=== PATIENT | male | born 1975 | race Caucasian/White ===

== ENCOUNTER 2021-07-03 13:51 | Observation (INO) | payer SELFPAY ==
[2021-07-03] VITALS (10 sets, daily range): BP systolic 117–134; BP diastolic 64–89; PULSE 54–98; RESP 15–18; TEMP 36.3–37.4; O2SAT 95–100; BMI 21.0
--- NOTE | ~2021-07-03 | CT_ITS ---
EXAMINATION: CT brain wo con DATE: 07/03/2021 15:12 INDICATION: Seizure. Confusion. Laceration to the back of the head. TECHNIQUE: Computed tomography (CT) of the head was performed without intravenous contrast. Sagittal and coronal reconstructions were performed. The mA was adjusted according to patient size. Iterative reconstruction technique was employed. The dose-length product was 605.33 mGy-cm. COMPARISON: None FINDINGS: No fracture. No acute intracranial hemorrhage, acute infarction or abnormal extra axial fluid collect ion. Ventricles are normal and symmetric. No mass/mass effect. Tiny right mastoid effusion. The orbit s are normal. Mucosal thickening at the left frontoethmoidal recess, anterior left ethmoid air cells and left sphenoid sinus. Additional mucosal thickening is seen at the visualized cephalad-most portio n of the left maxillary sinus which demonstrates thickened sclerotic fuentes consistent with chronic si nusitis. IMPRESSION: 1. Normal brain. No fracture or acute intracranial process. 2. Sinus disease including likely chronic left maxillary sinusitis. Reviewed, dictated and finalized at location A.
--- NOTE | 2021-07-03 14:11 | ECG_ITS ---
Measurements Intervals [place] Rate: 89 P: 49 CT: 148 QRS: 18 QRSD: 92 T: 46 QT: 395 QTc: 483 Interpretive Statements SINUS RHYTHM INCOMPLETE RIGHT BUNDLE BRANCH BLOCK BASELINE ARTIFACT- II, V1, V3-V6 BORDERLINE ECG Electronically Signed On 07-03-2021 15:11:03 CDT by Paulo Gaitan D.O.
[2021-07-03] MEDS: PHENobarbitaL sodium (*CRX) 130 MG/ML VIAL IV PUSH (15:17)
[2021-07-03] MEDS: LACTATED RINGERS 1,000 ML 999 ML IV CONT (15:17)
[2021-07-03] MEDS: THIAMINE HCL 200 MG/2 ML VIAL 500 MG IV PUSH (15:17)
[2021-07-03 15:46] LABS: Basophils Percent Auto 0.3 % (0.2-1.2); Eosinophils Percent Auto 0.1 % (0-4.4); Hematocrit 36.9 % (42.0-52.0); Immature Granulocyte Absolute 0.03 K/mm3 (0.00-0.031); Immature Granulocyte Percent A 0.3 % (0-0.5); Lymphocytes Absolute Auto 0.52 K/mm3 (0.9-3.2); Mean Corpuscular HGB Conc 35.2 g/dl (32-36); Mean Corpuscular Hemoglobin 32.7 pg (26-34); Mean Corpuscular Volume 92.9 fl (80-100); Mean Platelet Volume 9.3 fl (7.4-10.4); Monocytes Absolute Auto 0.4 K/mm3 (0.1-0.6); Monocytes Percent Auto 4.2 % (2.6-8.5); Neutrophils Absolute Auto 7.7 K/mm3 (1.3-6.7); Neutrophils Percent Auto 89.1 % (45.5-73.1); Platelet Count Result 161 k/mm3 (150-375); Red Blood Count 3.97 M/mm3 (4.6-6.20); Red Cell Distribution Width 12.1 % (11.5-14.5); White Blood Count 8.6 K/mm3 (4.5-10.0)
[2021-07-03 15:57] LABS: Ethanol < 10 mg/dL (<10)
[2021-07-03 15:58] LABS: Alanine Aminotransferase 45 U/L (4-50); Albumin Level 4.4 g/dL (3.5-5.1); Alkaline Phosphatase 73 U/L (38-126); Anion Gap 7 mmol/L (8-16); Aspartate Amino Transferase 73 U/L (17-59); Bilirubin,Total 0.9 mg/dL (0.2-1.3); Blood Urea Nitrogen 14 mg/dL (9-20); Carbon Dioxide 29 mmol/L (22-30); Chloride 100 mmol/L (98-107); Estimated CRCL calculation 103 ml/min; Estimated Glomerular Filt Rate > 60; Glucose 100 mg/dL (65-110); Potassium 4.3 mmol/L (3.4-5.0); Sodium 136 mmol/L (137-145)
[2021-07-03 16:10] LABS: Amphetamine Screen Urine Negative (Negative); Barbiturate Screen Urine Negative (Negative); Benzodiazepines Screen Urine Negative (Negative); Cannabinoid Screen Urine Negative (Negative); Cocaine Screen Urine Negative (Negative); Methadone Screen Urine Negative (Negative); Opiate Screen Urine Negative (Negative); Phencyclidine Screen Urine Negative (Negative)
--- NOTE | 2021-07-03 17:12 | ED.SEIZURE ---
HPI - Seizure General Chief Complaint: Seizure Stated Complaint: sz, etoh history Time Seen by Provider: 07/03/21 13:58 Source: patient Mode of arrival: EMS Limitations: clinical condition History of Present Illness HPI Narrative: 45-year-old male Brought in by EMS for a seizure We do not have a good description of the seizure activity, only report from EMS is that he still appeared to be somewhat confused/postictal when they arrived The patient tells me that he has a history of seizures which occur several times each year He says that he takes an anticonvulsant which begins with a letter O which is prescribed to him the the ER in [facility] where he lives 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 He does not follow-up with a PCP or a neurologist It looks like he has had a number of falls, he has got bruises on his left shoulder left cheek right forehead Denies being in any altercations He is a heavy daily drinker, at least six and as many as twelve beers every day, not very much hard liquor, most recently drank beer about 14 hours ago last night Denies drug use Seizure History: Yes (x 1 episode) Related Data Home Medications Medication Instructions Recorded Confirmed Unable to Obtain Home Medications 07/03/21 07/03/21 Allergies Allergy/AdvReac Type Severity Reaction Status Date / Time No Known Allergies Allergy Verified 07/03/21 14:09 Review of Systems Review of Systems: All systems reviewed & are unremarkable except as noted in HPI and below Constitutional: Constitutional: Reports no additional constitutional complaints, Denies chills, Reports fatigue, Denies fever(s) and Denies headache(s) Eyes: Eyes: Reports no additional eye complaints and Denies change in vision ENT: Denies headache(s) and Denies sore throat Cardiovascular: Cardiovascular: Denies chest pain and Denies dyspnea Respiratory: Respiratory: Denies cough and Denies dyspnea Gastrointestinal: Gastrointestinal: Denies abdominal pain, Denies diarrhea, Reports nausea and Reports vomiting Genitourinary: Genitourinary: Denies dysuria and Denies urinary frequency Musculoskeletal: Musculoskeletal: Denies deformity, Denies arthralgias, Denies joint swelling and Denies numbness Comments: Contusions Integumentary/Breasts: Skin/Breast: Denies rash and Denies wounds Neurologic: Reports headache(s), Denies focal weakness and Denies numbness Comments: Syncope versus seizure Psychiatric: Psychiatric: Reports no additional psychiatric complaints Endocrine: Endocrine: Reports no additional endocrine complaints Hematologic/Lymphatic: Hematologic/Lymphatic: Reports no additional hematologic/lymphatic complaints Allergic/Immunologic: Allergic/Immunologic: Reports no additional allergic/immunologic complaints [facility] Past Medical History Medical History (Updated 07/03/21 @ 17:23 by Thong Mistry MD) Seizure Social History Social History (Updated 07/03/21 @ 17:20 by Thong Mistry MD) Alcohol intake: current Exam Const: General: cooperative and alert Nutritional Appearance: well nourished Orientation/consciousness: patient oriented x3 (alert) HENMT: Head: normocephalic, atraumatic, contusion and no lacerations Ears: external ears normal General nose exam: no epistaxis Eyes: Conjunctivae: conjunctivae normal Pupils: Equal, round and reactive pupils present EOM: EOMs intact bilaterally Neck: Neck: normal visual inspection, supple and no JVD Resp: Effort & Inspection: normal respiratory effort and not labored Auscultation: clear to auscultation bilaterally, no rales, no rhonchi, no wheezes and other (BS =) Cardio: Rate: regular rate Rhythm: regular rhythm Heart sounds: no murmurs GI: GI Palp: Yes Soft to palpation, No Tenderness to palpation present (GI) and No Guarding due to palpation present (GI) Skin: General skin exam: normal color and no rashes or lesions noted Other: Abrasions and contusion
--- NOTE | 2021-07-03 18:30 | ADMGEN ---
This patient, Thong Acosta, was admitted to IMU Room 207-01. Patient/family oriented to hospital policies and general routines including ID bracelet, bed and alarms, visiting hours, pain management, procedures, bathroom and other care routines, personal items, smoking policy, room service/diet, and visiting hours. Information on how to activate the Rapid Response Team has been discussed. Patient/Family are encouraged to report perceived risks to care and to ask questions if they do not understand what they are told or what they should do.
[2021-07-03] MEDS: THIAMINE HCL INJ 100 MG, FOLIC ACID INJ 1 MG, MULTIVITAMINS-12 INJ VIAL 1 5 ML, MULTIVI... 125 MG IV CONT (19:04)
[2021-07-03 20:16] LABS: Magnesium 3.8 mg/dL (1.6-2.3)
[2021-07-03] MEDS: FAMOTIDINE 20 MG/2 ML VIAL IV PUSH (20:26)
[2021-07-03] MEDS: chlordiazePOXIDE (*CRX) 25 MG CAPSULE PO (20:27)
[2021-07-03] MEDS: LORazepam INJ (*CRX) 2 MG/ML VIAL 1 MG IV PUSH (20:32)
--- NOTE | 2021-07-03 21:06 | PM.IMHP ---
H&P: HPI History of Present Illness Date/Time: 07/03/21 21:06 this is a 45-year-old male patient who has a history of alcoholism. The patient recently had been to rehab but then started drinking again. The patient stated that he does have alcohol withdrawal seizures. The patient stated he was placed on something for this but does not remember what it was called. The patient has abrasions on his face and arm. The patient fell was brought to the emergency room for seizure. The patient was somewhat confused when he arrived to the emergency room. The patient stated he does not see a neurologist any does not take any medicine at this time. 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 Patient states that he drinks a pt of vodka a day and then has multiple beers with that. He is not able to quantify how many beers he has on a daily basis. On his ER record it was noted that the patient drinks 6-12 beers. His last drink was approximately 14 hours ago. However the patient does not recall the events of last night. The patient has had 1 seizure in the past and was due to alcohol withdrawal. The patient is now awake and talking to me. The patient has tremulous hands. H&H 13.0 and 36.9. Neutrophils 89.1. Sodium 136. Magnesium was high at 3.8. AST 73. I did order p.r.n. Ativan and Librium and banana bag and then we can start folic acid and thiamin. CT of the brain read as normal brain. Patient is being admitted to observation status on the date of service of 07/03/2021 Chief Complaint: Alcohol withdrawal seizure Review of Systems Review of Systems: All systems reviewed & are unremarkable except as noted in HPI and below Constitutional: Constitutional: Reports as per HPI and Reports no additional constitutional complaints Eyes: Eyes: Reports as per HPI and Reports no additional eye complaints ENT: Reports system reviewed and no additional complaints, except as documented and Reports Normal hearing present Cardiovascular: Cardiovascular: Reports no additional cardiovascular complaints Respiratory: Respiratory: Reports no additional respiratory complaints and Reports no additional respiratory complaints Gastrointestinal: Gastrointestinal: Reports as per HPI and Reports no additional gastrointestinal complaints Musculoskeletal: Musculoskeletal: Reports no additional musculoskeletal complaints Integumentary/Breasts: Skin/Breast: Reports system reviewed and no additional complaints, except as docu and Reports as per HPI Neurologic: Reports system reviewed and no additional complaints, except as documented, Reports as per HPI and Reports Normal hearing present Psychiatric: Psychiatric: Reports no additional psychiatric complaints and Reports as per HPI Endocrine: Endocrine: Reports no additional endocrine complaints Hematologic/Lymphatic: Hematologic/Lymphatic: Reports no additional hematologic/lymphatic complaints Allergic/Immunologic: Allergic/Immunologic: Reports no additional allergic/immunologic complaints COUNT INCLUDES THE [facility] Past Medical History Medical History (Updated 07/03/21 @ 21:41 by Cintia Nickerson NP) Alcohol abuse Seizure Surgical History Surgical History (Updated 07/03/21 @ 21:40 by Cintia Nickerson NP) History of tonsillectomy and adenoidectomy Family History Family History (Updated 07/03/21 @ 18:47 by Swetha Sosa RN) Other Unknown family medical history Social History Social History (Updated 07/03/21 @ 21:44 by Cintia Nickerson NP) Social History: The patient is single and does not have any children. 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 The patient is a full code and does not have a durable power health care attorney. He does live with a roommate that he has known since grade school. The patient stated he can drink up to a pt of vodka a day +6 to 12 beers a day. Patient
[2021-07-03] MEDS: NICOTINE (*PBKC) 21 MG PATCH 1 PATCH TRANSDERM (21:52)
[2021-07-04] VITALS (13 sets, daily range): BP systolic 117–126; BP diastolic 72–86; PULSE 47–65; RESP 12–16; TEMP 36.1–37; O2SAT 100
[2021-07-04 00:04] LABS: Glucose Point of Care 66 mg/dl (65-105)
[2021-07-04 01:34] LABS: Glucose Point of Care 125 mg/dl (65-105)
[2021-07-04] MEDS: LACTATED RINGERS 1,000 ML 125 ML IV CONT ×3 (03:34→21:07)
[2021-07-04] MEDS: chlordiazePOXIDE (*CRX) 25 MG CAPSULE PO ×3 (06:00→21:08)
[2021-07-04 06:48] LABS: Glucose Point of Care 90 mg/dl (65-105)
[2021-07-04] MEDS: FAMOTIDINE 20 MG/2 ML VIAL IV PUSH ×2 (08:32→21:07)
[2021-07-04] MEDS: FOLIC ACID 1 MG TABLET PO (08:32)
[2021-07-04] MEDS: THIAMINE HCL 100 MG TABLET PO (08:32)
[2021-07-04] MEDS: NICOTINE (*PBKC) 21 MG PATCH 1 PATCH TRANSDERM (08:33)
[2021-07-04] MEDS: PHENobarbitaL (*CRX) 30 MG TABLET 90 MG PO ×3 (08:37→16:38)
[2021-07-04 11:36] LABS: Glucose Point of Care 115 mg/dl (65-105)
--- NOTE | 2021-07-04 14:35 | PM.IMPN ---
Progress Note: A&P Assessment and Plan (1) Seizure: Code(s): R56.9 - Unspecified convulsions Status: Acute Assessment and Plan: Cannot recall what seizure medication he was on Reports having only 1 other seizure that was due to alcohol withdrawal EEG Neurology consulted Ativan renny (2) Alcohol withdrawal: Code(s): F10.239 - Alcohol dependence with withdrawal, unspecified Status: Acute Assessment and Plan: Patient reported that he recently went to rehab and relapsed soon after Drinks 1/2 pint vodka daily Cessation advised consult personal care aide for placement for rehab, outpatient rehab preferred, but afraid to lose his new job Continue IVF with folic acid and thiamine Continue with Librium p.r.n. Haldol and Ativan CIWA score 7-10 (3) Alcohol abuse: Code(s): F10.10 - Alcohol abuse, uncomplicated Status: Chronic Assessment and Plan: Treatment as above (4) Tobacco abuse: Code(s): Z72.0 - Tobacco use Status: Chronic Assessment and Plan: Cessation advised Continue nicotine patch Subjective Date/time seen: 07/04/21 14:35 Interval history: pt seen and evaluated; labs, vs and diagnostic results reviewed; no acute events overnight; +tremors and ANGUIANO with cough Review of Systems Review of Systems: All systems reviewed & are unremarkable except as noted in HPI and below Exam Const: General: no acute distress, alert and awake Orientation/consciousness: patient oriented x3 HENMT: Head: normocephalic, abrasion (left cheek) and contusion right frontal Ears: hearing grossly normal bilaterally and external ears normal Face and sinus: face symmetric Mouth: Yes Normal oral and palatal mucosa present Eyes: EOM: EOMs intact bilaterally Neck: Neck: full ROM, trachea midline and no JVD Resp: Auscultation: clear to auscultation bilaterally Cardio: Jugular venous distension: no JVD Rate: regular rate Rhythm: regular rhythm Heart sounds: S1 normal heart sound present and S2 normal heart sound present GI: GI Palp: Yes Soft to palpation Auscultation: normal bowel sounds : General: Yes no CVA tenderness Skin: General skin exam: normal color Rashes: no rashes Neuro: General: patient oriented x3 and CN's II-XI intact bilaterally Speech: normal speech Extrem: General: full ROM and no clubbing, cyanosis or edema Psych: Appearance: grossly normal Affect: normal affect Objective Data Vital Signs Vital Signs: Vital Signs - 24 hr 07/03/21 15:24 07/03/21 17:32 07/03/21 18:45 Temperature Pulse Rate 89 75 Pulse Rate [Monitor] 77 Respiratory Rate 17 15 Blood Pressure 125/86 124/88 Pulse Oximetry 96 95 07/03/21 19:55 07/03/21 20:00 07/03/21 22:00 Temperature 37.4 C 36.5 C Pulse Rate 72 75 58 L Pulse Rate [Monitor] 98 Respiratory Rate 18 18 Blood Pressure 123/73 121/64 Pulse Oximetry 98 95 07/03/21 23:20 07/04/21 00:00 07/04/21 02:00 Temperature 36.3 C L Pulse Rate 54 L 47 L 52 L Pulse Rate [Monitor] 47 L Respiratory Rate 16 Blood Pressure 117/80 Pulse Oximetry 100 07/04/21 04:00 07/04/21 06:00 07/04/21 07:46 Temperature 36.1 C L 36.1 C L Pulse Rate 53 L 50 L 51 L Pulse Rate [Monitor] 52 L Respiratory Rate 16 16 Blood Pressure 117/86 123/82 Pulse Oximetry 100 100 07/04/21 08:00 07/04/21 10:00 07/04/21 12:00 Temperature 36.5 C Pulse Rate 63 64 55 L Pulse Rate [Monitor] 59 L 55 L Respiratory Rate 16 Blood Pressure 118/84 Pulse Oximetry 100 07/04/21 14:00 Temperature Pulse Rate 58 L Pulse Rate [Monitor] Respiratory Rate Blood Pressure Pulse Oximetry Intake/Output Intake/Output: Intake & Output 07/01/21 07/02/21 07/03/21 07/04/21 23:59 23:59 23:59 23:59 Intake Total 1000 3233.2 Output Total 400 Balance 1000 2833.2 Meds/Results Medications: Active Medications Generic Name Dose Route Start Last Admin Trade Name Freq PRN Reason St
[2021-07-04] MEDS: LORazepam INJ (*CRX) 2 MG/ML VIAL 1 MG IV PUSH (18:30)
[2021-07-04] MEDS: ACETAMINOPHEN 325 MG TABLET 650 MG PO (21:08)
[2021-07-05] VITALS (7 sets, daily range): BP systolic 126–127; BP diastolic 72–89; PULSE 50–68; RESP 16; TEMP 36.1–36.3; O2SAT 100
[2021-07-05] MEDS: chlordiazePOXIDE (*CRX) 25 MG CAPSULE PO ×2 (05:24→13:09)
[2021-07-05] MEDS: LACTATED RINGERS 1,000 ML 125 ML IV CONT ×2 (05:24→08:10)
[2021-07-05 05:33] LABS: Glucose Point of Care 93 mg/dl (65-105)
[2021-07-05 08:08] LABS: Glucose Point of Care 81 mg/dl (65-105)
[2021-07-05] MEDS: PHENobarbitaL (*CRX) 30 MG TABLET 90 MG PO ×2 (08:10→13:09)
[2021-07-05] MEDS: FAMOTIDINE 20 MG/2 ML VIAL IV PUSH (08:10)
[2021-07-05] MEDS: THIAMINE HCL 100 MG TABLET PO (08:10)
[2021-07-05] MEDS: FOLIC ACID 1 MG TABLET PO (08:10)
--- NOTE | 2021-07-05 11:21 | WPDNEURCNPN ---
Assessment and Plan Additional Plan alcohol related seizure needs observation Consult date: 07/05/21 Time Seen: 11:00 HPI: Thong Acosta is a 45 year old male has been admitted to the hospital the complaints of fall in addition to the history of alcoholism and alcohol related withdrawal seizures. At the time of initial evaluation he was reportedly confused and he was unable to recall exactly what has happened to him. He drinks pt of vodka a day followed by multiple beers on initial evaluation in the emergency room he mentions that he took 6 to 12 beers and was the last drink was about 14 hours ago he has had seizure 1 time in the past and again it was related to alcohol withdrawal initial CT scan of the brain in the Emergency Room documented no bleed and he was admitted for further observation , pertinent other information includes the history of alcohol-related seizure and alcohol abuse, years smoked 30 and currently everyday smoker, drinking 12 drinks per week Review of Systems Review of Systems: All systems reviewed & are unremarkable except as noted in HPI and below PMFSH Past Medical History Medical History Alcohol abuse Seizure Surgical History Surgical History History of tonsillectomy and adenoidectomy Family History Family History Other Unknown family medical history Social History Social History Social History: The patient is single and does not have any children. 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 He does live with a roommate that he has known since grade school. The patient stated he can drink up to a pt of vodka a day +6 to 12 beers a day. Patient stated that he does occasionally use marijuana but no illicit drugs. Code status full code Smoking packs per day: 1 Smoking cigarettes per day: 20.0 Years smoked: 30 Smoking pack-years: 30.00 Smoking status: Current every day smoker Tobacco type: cigarettes Alcohol intake: current Drinks per week: 12 Substance use: former Substance use type: marijuana Spiritual care concerns: No Meds Home Medications and Allergies Home Medications Medication Instructions Recorded Confirmed Type Unable to Obtain Home Medications 07/03/21 07/03/21 History Allergies Allergy/AdvReac Type Severity Reaction Status Date / Time No Known Allergies Allergy Verified 07/03/21 14:09 Vital Signs Vital Signs - 24 hr 07/04/21 12:00 07/04/21 14:00 07/04/21 16:00 Temperature 36.5 C 37.0 C Pulse Rate 55 L 58 L 59 L Pulse Rate [Monitor] 55 L 64 Respiratory Rate 16 12 Blood Pressure 118/84 126/78 Pulse Oximetry 100 100 07/04/21 18:00 07/04/21 20:00 07/04/21 21:35 Temperature 36.5 C Pulse Rate 65 56 L 56 L Pulse Rate [Monitor] 64 Respiratory Rate 16 16 Blood Pressure 126/72 126/72 Pulse Oximetry 100 100 07/05/21 00:00 07/05/21 03:45 07/05/21 04:00 Temperature Pulse Rate 50 L Pulse Rate [Monitor] 64 64 Respiratory Rate Blood Pressure 126/72 126/72 Pulse Oximetry 07/05/21 05:37 07/05/21 08:00 07/05/21 08:34 Temperature 36.1 C L 36.3 C L Pulse Rate 63 57 L Pulse Rate [Monitor] 68 Respiratory Rate 16 16 Blood Pressure 126/89 127/78 Pulse Oximetry 100 100 Exam Const: General: cooperative, comfortable and no acute distress Nutritional Appearance: thin Orientation/consciousness: oriented to person, oriented to place and oriented to time Limitations: no limitations HENMT: Head: normal to inspection ( bruises) and normocephalic Ears: hearing grossly normal bilaterally General nose exam: Normal external nose present Face and sinus: normal facial exam (
[2021-07-05 11:53] LABS: Glucose Point of Care 91 mg/dl (65-105)
--- NOTE | 2021-07-05 12:10 | PCDIET ---
Dietitian consult for seizure. Patient is currently on a heart healthy diet, consuming 100% of meals. No weight loss at this time. Patient states when he was in rehab center he gained weight. No diet questions or concerns. Thank you for the consult. No further nutritional interventions.
--- NOTE | 2021-07-05 14:33 | PM.IMPN ---
Progress Note: A&P Assessment and Plan (1) Seizure: Code(s): R56.9 - Unspecified convulsions Status: Acute Assessment and Plan: Cannot recall what seizure medication he was on Reports having only 1 other seizure that was due to alcohol withdrawal EEG today Neurology consulted Atlaura lawson (2) Alcohol withdrawal: Code(s): F10.239 - Alcohol dependence with withdrawal, unspecified Status: Acute Assessment and Plan: Patient reported that he recently went to rehab and relapsed soon after Drinks 1/2 pint vodka daily Cessation advised consult hospice care sales consultant for placement for rehab, outpatient rehab preferred, but afraid to lose his new job Continue IVF with folic acid and thiamine Continue with Librium p.r.n. Haldol and Ativan CIWA score 3 (3) Alcohol abuse: Code(s): F10.10 - Alcohol abuse, uncomplicated Status: Chronic Assessment and Plan: Treatment as above (4) Tobacco abuse: Code(s): Z72.0 - Tobacco use Status: Chronic Assessment and Plan: Cessation advised Continue nicotine patch Subjective Date/time seen: 07/05/21 14:33 Interval history: 07/04 pt seen and evaluated; labs, vs and diagnostic results reviewed; no acute events overnight; +tremors and ANGUIANO with cough 07/05 pt denies any tremors; ANGUIANO has improved; denies cough; EEG today Review of Systems Review of Systems: All systems reviewed & are unremarkable except as noted in HPI and below Exam Const: General: no acute distress, alert and awake Orientation/consciousness: patient oriented x3 HENMT: Head: normocephalic, abrasion (left cheek) and contusion right frontal Ears: hearing grossly normal bilaterally and external ears normal Face and sinus: face symmetric Mouth: Yes Normal oral and palatal mucosa present Eyes: EOM: EOMs intact bilaterally Neck: Neck: full ROM, trachea midline and no JVD Resp: Auscultation: clear to auscultation bilaterally Cardio: Jugular venous distension: no JVD Rate: regular rate Rhythm: regular rhythm Heart sounds: S1 normal heart sound present and S2 normal heart sound present GI: Auscultation: normal bowel sounds : General: Yes no CVA tenderness Back/Spine/Pelvis: Back: no CVA tenderness Skin: General skin exam: normal color Rashes: no rashes Neuro: General: patient oriented x3 and CN's II-XI intact bilaterally Speech: normal speech Extrem: General: full ROM and no clubbing, cyanosis or edema Psych: Appearance: grossly normal Affect: normal affect Objective Data Vital Signs Vital Signs: Vital Signs - 24 hr 07/04/21 16:00 07/04/21 18:00 07/04/21 20:00 Temperature 37.0 C Pulse Rate 59 L 65 56 L Pulse Rate [Monitor] 64 64 Respiratory Rate 12 16 Blood Pressure 126/78 126/72 Pulse Oximetry 100 100 07/04/21 21:35 07/05/21 00:00 07/05/21 03:45 Temperature 36.5 C Pulse Rate 56 L Pulse Rate [Monitor] 64 64 Respiratory Rate 16 Blood Pressure 126/72 126/72 126/72 Pulse Oximetry 100 07/05/21 04:00 07/05/21 05:37 07/05/21 08:00 Temperature 36.1 C L 36.3 C L Pulse Rate 50 L 63 57 L Pulse Rate [Monitor] Respiratory Rate 16 16 Blood Pressure 126/89 127/78 Pulse Oximetry 100 100 07/05/21 08:34 Temperature Pulse Rate Pulse Rate [Monitor] 68 Respiratory Rate Blood Pressure Pulse Oximetry Intake/Output Intake/Output: Intake & Output 07/02/21 07/03/21 07/04/21 07/05/21 23:59 23:59 23:59 23:59 Intake Total 1000 5233.2 2480 Output Total 400 Balance 1000 4833.2 2480 Meds/Results Medications: Active Medications Generic Name Dose Route Start Last Admin Trade Name Freq PRN Reason Stop Dose Admin Acetaminophen 650 mg 07/03/21 16:51 07/04/21 21:08 Acetaminophen 325 Mg Tablet PO 650 mg Q4H PRN Administration Mild Pain (1-3) or Fever Chlordiazepoxide HCl 25 mg 07/03/21 22:00 07/05/21 13:09 Chlordiazepoxide (*Crx) 25 Mg Capsule PO 25 mg Q8HR
--- NOTE | 2021-07-05 15:49 | PC.NURSE ---
Patient requested to LEAVE AGAINST MEDICAL ADVICE. Hospitalist Lavon Posada notified and made aware. Patient is alert and oriented, education provide to patient. Patient refused and demanded to leave.
--- NOTE | 2021-07-05 17:10 | PM.DS ---
DS: Admitting Diagnosis Discharge Date 07/05/21 Admitting Diagnosis Seizure DS: Discharge Diagnosis Discharge Diagnosis (1) Seizure: Code(s): R56.9 - Unspecified convulsions Status: Acute Assessment and Plan: Cannot recall what seizure medication he was on Reports having only 1 other seizure that was due to alcohol withdrawal EEG today Neurology consulted Laura lawson (2) Alcohol withdrawal: Code(s): F10.239 - Alcohol dependence with withdrawal, unspecified Status: Acute Assessment and Plan: Patient reported that he recently went to rehab and relapsed soon after Drinks 1/2 pint vodka daily Cessation advised consult care transitions nurse for placement for rehab, outpatient rehab preferred, but afraid to lose his new job Continue IVF with folic acid and thiamine Continue with Librium p.r.n. Haldol and Ativan CIWA score 3 (3) Alcohol abuse: Code(s): F10.10 - Alcohol abuse, uncomplicated Status: Chronic Assessment and Plan: Treatment as above (4) Tobacco abuse: Code(s): Z72.0 - Tobacco use Status: Chronic Assessment and Plan: Cessation advised Continue nicotine patch DS: Summary Hospital Course Hospital Course: This is a 45-year-old male patient who has a history of alcoholism. The patient recently had been to rehab but then started drinking again. The patient stated that he does have alcohol withdrawal seizures. The patient stated he was placed on something for this but does not remember what it was called. The patient has abrasions on his face and arm. The patient fell and was brought to the emergency room for seizure. The patient was somewhat confused when he arrived to the emergency room. The patient stated he does not see a neurologist any does not take any medicine at this time. 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 Patient states that he drinks a pt of vodka a day and then has multiple beers with that. He is not able to quantify how many beers he has on a daily basis. On his ER record it was noted that the patient drinks 6-12 beers. His last drink was approximately 14 hours [employer]. However the patient does not recall the events of last night. The patient has had 1 seizure in the past and was due to alcohol withdrawal. H&H 13.0 and 36.9. Neutrophils 89.1. Sodium 136. Magnesium was high at 3.8. AST 73. I did order p.r.n. Ativan and Librium and banana bag and then we can start folic acid and thiamin. CT of the brain read as normal brain. Patient is being admitted to observation status on the date of service of 07/03/2021 Neurology consulted and the patient underwent EEG today. He was not willing to await the results and recommendation from neurology and left AMA. Time Spent with Patient Time attestation: Total time spent providing and/or coordinating discharge services: DS: Data Data Completed and Pending Labs on day of discharge: Labs from last 24 hours 07/05/21 07/05/21 07/05/21 11:49 07:53 05:26 POC Capillary Glucose 91 81 93 Discharge Plan Discharge Consulting providers: Vinayak Trejo Patient Disposition: Left Against Medical Advice Patient Instructions: How to Stop Smoking (GEN) Discharge Medications: No Action Unable to Obtain Home Medications RF: 0 Date of admission: 07/03/21 16:51 Primary Care Provider: PHYSICIAN,BROKE BEATER Admitting Provider: Lexa Montoya Attending physician on admission: Lexa Montoya Condition: Improved Quality VTE Prophylaxis VTE prophylaxis: mechanical ordered
--- NOTE | 2021-07-06 09:28 | P.NEURO_ITS ---
Neurology EEG Report General Information Date of Study: 07/05/21 TEST eeg DIAGNOSIS seizures CONDITION OF RECORDING Drowsy and sleep EEG NUMBER [id number] CLINICAL HISTORY patient has a history of seizures. Does not follow up with primary care physician or neurologist. He drinks quite a bit and has been to rehab for 2 weeks but started drinking again EEG DESCRIPTION whole record consists of diffuse low-voltage 15 to 21 hertz per 2nd beta ac tivity admixed with very short period of low to medium voltage 8 to 10 hertz per 2nd alpha, hyperventilation not done, photic stimulation not done ,non paroxysmal, nonfocal ,nonlateralizing. IMPRESSION no significant abnormalities noted throughout the tracing which mainly comprised of drowsiness and sleep
== END 2021-07-05 15:48 | disposition left against medical advice (07) ==
LOC: ANHED 17:23 → ANHIMU 17:48 → ANH2MED 07-04 19:12
PROVIDERS: Nurse Practitioner; Admitting Provider Internal Medicine Critical Care Medicine; Emergency Provider Emergency Medicine; Visit Provider Internal Medicine Critical Care Medicine
DX: R56.9 Unspecified convulsions (principal); F10.239 Alcohol dependence with withdrawal, unspecified; F17.210 Nicotine dependence, cigarettes, uncomplicated
CPT/HCPCS: 36415; 70450; 80053; 80307; 82948; 83735; 85025; 93005; 95816; 96361; 96365; 96366; 96374; 96375; 96376; 99285; A9270; G0378; J2060; J2560; J3411; J3475; J7030; J7120